=== PATIENT | female | born 1955 | race Caucasian/White ===

== ENCOUNTER → 2017-06-29 15:01 | Outpatient (CLI) | payer BC | END | disposition home or self-care (01) | LOC: D.CT 15:00 | DX: R51 Headache (principal); R26.89 Other abnormalities of gait and mobility; G91.2 (Idiopathic) normal pressure hydrocephalus ==

== ENCOUNTER → 2018-05-27 21:09 | Outpatient (CLI) | payer BC | END | disposition home or self-care (01) | LOC: D.MAMMO 13:00 | DX: Z12.31 Encounter for screening mammogram for malignant neoplasm of breast (principal) ==